=== PATIENT | male | born 1990 | race American Indian/Alaskan Native ===

== ENCOUNTER 2016-06-29 15:20 | Emergency (ER) | payer OTHER ==
[2016-06-29 15:56] VITALS: BP 119/75
--- NOTE | 2016-06-29 18:55 | Emergency Department Report ---
HPI - General Chief Complaint: Dental/Oral Time Seen by Provider: 06/29/16 18:08 - HPI HPI: 26-year-old male presents today with a cold sore to his right upper lip 2 days. Positive for history of cold sores. Describes his pain as 6 out of 10 intermittent aching pain. Tried hot water and ice without relief. Denies drainage or bleeding. Denies fever, chills, nausea, vomiting, chest pain, shortness of breath, abdominal pain. ED Past Medical Hx - Past Medical History Previous Medical History?: No Additional medical history: Tetanus status up to date - Surgical History Past Surgical History?: No - Social History Smoking Status: Never Smoker Substance Use Type: None - Medications Home Medications: Home Medications Medication Instructions Recorded Confirmed Last Taken Type Acetaminophen/Codeine [Tylenol #3] 1 tab PO Q6H PRN #20 tab 08/20/14 Unknown Rx Loratadine [Claritin] 10 mg PO DAILY #30 tablet 08/20/14 Unknown Rx predniSONE [Deltasone] 40 mg PO QDAY #10 tab 08/20/14 Unknown Rx Omeprazole [PriLOSEC] 20 mg PO BID #60 cap 08/23/14 Unknown Rx ALBUTEROL Inhaler [ProAir HFA 2 puff IH QID PRN #1 inhalation 06/13/15 Unknown Rx Inhaler] Prednisone [predniSONE 10 mg 10 mg PO .TAPER #1 tab.ds.pk 06/13/15 Unknown Rx (6-Day Pack, 21 Tabs)] Pseudoephed/Cod/Guaifen 5 ml PO Q6H #120 ml 06/13/15 Unknown Rx [Robitussin DAC 10-100-30Mg/5Ml] Acetaminophen/Codeine [Tylenol #3] 1 tab PO Q6H PRN #20 tab 09/02/15 Unknown Rx Clindamycin [Clindamycin CAP] 300 mg PO Q6H #30 capsule 09/02/15 Unknown Rx Ibuprofen [Motrin 600 MG tab] 600 mg PO Q8H PRN #40 tablet 09/02/15 Unknown Rx Acyclovir [Zovirax Cap] 200 mg PO 5XD #35 cap 06/29/16 Unknown Rx ED Review of Systems ROS: Stated complaint: COLD SORE/SWOLLEN LIP/ Other details as noted in HPI Constitutional: denies: chills, fever, malaise Eyes: denies: eye pain ENT: denies: ear pain, throat pain, congestion Respiratory: denies: cough, shortness of breath, wheezing Cardiovascular: denies: chest pain, palpitations Endocrine: no symptoms reported Gastrointestinal: denies: abdominal pain, nausea, vomiting Skin: lesions Neurological: denies: headache, weakness Physical Exam - Physical Exam Vital Signs: Vital Signs 06/29/16 15:53 Temperature 98.2 F Pulse Rate 83 Respiratory 18 Rate Blood Pressure 119/75 O2 Sat by Pulse 100 Oximetry Physical Exam: GENERAL: The patient is well-developed and well-nourished. Patient is in NAD. HEAD: Normocephalic. Atraumatic. EYES: PERRL. NOSE: Normal nasal mucosa with no nasal discharge. THROAT: No erythema, swelling or exudates. LIPS: Positive for cold sore to his right upper lip. No bleeding or drainage noted. NECK: Supple, nontender, without lymphadenopathy. CHEST/LUNGS: Clear to auscultation throughout. HEART/CARDIOVASCULAR: Regular rate and rhythm. No murmurs, rubs or gallops. ABDOMEN: Abdomen is soft, nontender. Bowel sounds normoactive. No guarding or rebound tenderness. EXTREMITIES: Peripheral pulses intact. Capillary refill less than 2 seconds. NEURO: Alert and oriented x 3. Normal gait. ED Course Vital Signs 06/29/16 15:53 Temperature 98.2 F Pulse Rate 83 Respiratory 18 Rate Blood Pressure 119/75 O2 Sat by Pulse 100 Oximetry ED Medical Decision Making - Lab Data Vital Signs 06/29/16 15:53 Temperature 98.2 F Pulse Rate 83 Respiratory 18 Rate Blood Pressure 119/75 O2 Sat by Pulse 100 Oximetry - Medical Decision Making 26-year-old male presents today with a cold sore. Patient is in no acute distress at this time. He will be discharged home and is encouraged to follow up with a primary care provider. He will be sent home on acyclovir and is encouraged to return to the emergency room for any worsening symptoms. Critical care attestation.: If time is entered above; I have spent that time in minutes in the direct care of this critically ill patient, excluding procedure time. ED Disposition Clinical Impression: Cold sore Disposition: DISCHARGED TO HOME OR SELFCARE Is pt being admited?: No Does the pt Need Aspirin: No Condition: Stable Instructions: Oral Herpes Simplex Virus Infections (ED) Additional Instructions: Follow with primary care provider. Return to the emergency department if symptoms worsen. Prescriptions: Acyclovir [Zovirax Cap] 200 mg PO 5XD #35 cap Referrals: PRIMARY CARE, [Primary Care Provider] - 3-5 Days [facility] [Outside] - 3-5 Days Forms: Work/School Release Form(ED) Time of Disposition: 18:52
== END 2016-06-29 19:01 | disposition home or self-care (01) ==
LOC: ED 15:20
DX: B00.1 Herpesviral vesicular dermatitis (principal)
CPT/HCPCS: 99282

== ENCOUNTER 2017-11-01 09:08 | Emergency (ER) | payer SELFPAY ==
[2017-11-01] MEDS ORDERED: TORADOL IM ONE (14:24)
[2017-11-01] MEDS ORDERED: TYLENOL PO ONE (14:24)
--- NOTE | 2017-11-01 14:25 | Emergency Department Report ---
ED General Adult HPI - General Chief complaint: Chest Pain Stated complaint: CHEST PAIN Time Seen by Provider: 11/01/17 14:18 Source: patient, RN notes reviewed, old records reviewed Mode of arrival: Ambulatory Limitations: No Limitations - History of Present Illness Initial comments: This is a 27-year-old male, right-hand dominant, unknown to this provider previously, who presents to the ER with a primary complaint of nontraumatic left -sided trapezius pain. The pain is achy, started at 7:00 AM, does not radiate anywhere, increases with palpation and decreases with rest. It has currently resolved. There is no trauma, there is no weakness, numbness, unsteady gait. Patient endorses nontraumatic right lateral chest wall pain as a secondary complaint, this also started at 7:00 in the morning, is now resolved, did not radiate anywhere, was unassociated with vomiting, diaphoresis or shortness of breath, denies cocaine use, aspirin use, and denies DVT, pulmonary embolus risk factors. -: Sudden Location: neck, chest Radiation: non-radiation Consistency: now resolved Improves with: none Worsens with: none Associated Symptoms: denies other symptoms. denies: confusion, chest pain, cough, diaphoresis, fever/chills, headaches, loss of appetite, malaise, nausea/ vomiting, rash, seizure, shortness of breath, syncope, weakness - Related Data Previous Rx's Medication Instructions Recorded Last Taken Type Acetaminophen/Codeine [Tylenol #3] 1 tab PO Q6H PRN #20 tab 08/20/14 Unknown Rx Loratadine [Claritin] 10 mg PO DAILY #30 tablet 08/20/14 Unknown Rx predniSONE [Deltasone] 40 mg PO QDAY #10 tab 08/20/14 Unknown Rx Omeprazole [PriLOSEC] 20 mg PO BID #60 cap 08/23/14 Unknown Rx ALBUTEROL Inhaler [ProAir HFA 2 puff IH QID PRN #1 inhalation 06/13/15 Unknown Rx Inhaler] Prednisone [predniSONE 10 mg 10 mg PO .TAPER #1 tab.ds.pk 06/13/15 Unknown Rx (6-Day Pack, 21 Tabs)] Pseudoephed/Cod/Guaifen 5 ml PO Q6H #120 ml 06/13/15 Unknown Rx [Robitussin DAC 10-100-30Mg/5Ml] Acetaminophen/Codeine [Tylenol #3] 1 tab PO Q6H PRN #20 tab 09/02/15 Unknown Rx Clindamycin [Clindamycin CAP] 300 mg PO Q6H #30 capsule 09/02/15 Unknown Rx Ibuprofen [Motrin 600 MG tab] 600 mg PO Q8H PRN #40 tablet 09/02/15 Unknown Rx Acyclovir [Zovirax Cap] 200 mg PO 5XD #35 cap 06/29/16 Unknown Rx Allergies Allergy/AdvReac Type Severity Reaction Status Date / Time No Known Allergies Allergy Verified 11/01/17 09:19 ED Review of Systems ROS: Stated complaint: CHEST PAIN Other details as noted in HPI Constitutional: denies: fever Eyes: denies: vision change ENT: denies: epistaxis Respiratory: denies: cough Cardiovascular: chest pain Gastrointestinal: denies: vomiting Genitourinary: denies: dysuria Musculoskeletal: arthralgia Neurological: denies: headache, weakness ED Past Medical Hx - Past Medical History Previous Medical History?: No Additional medical history: Tetanus status up to date - Surgical History Past Surgical History?: No - Social History Smoking Status: Never Smoker Substance Use Type: None - Medications Home Medications: Home Medications Medication Instructions Recorded Confirmed Last Taken Type Acetaminophen/Codeine [Tylenol #3] 1 tab PO Q6H PRN #20 tab 08/20/14 Unknown Rx Loratadine [Claritin] 10 mg PO DAILY #30 tablet 08/20/14 Unknown Rx predniSONE [Deltasone] 40 mg PO QDAY #10 tab 08/20/14 Unknown Rx Omeprazole [PriLOSEC] 20 mg PO BID #60 cap 08/23/14 Unknown Rx ALBUTEROL Inhaler [ProAir HFA 2 puff IH QID PRN #1 inhalation 06/13/15 Unknown Rx Inhaler] Prednisone [predniSONE 10 mg 10 mg PO .TAPER #1 tab.ds.pk 06/13/15 Unknown Rx (6-Day Pack, 21 Tabs)] Pseudoephed/Cod/Guaifen 5 ml PO Q6H #120 ml 06/13/15 Unknown Rx [Robitussin DAC 10-100-30Mg/5Ml] Acetaminophen/Codeine [Tylenol #3] 1 tab PO Q6H PRN #20 tab 09/02/15 Unknown Rx Clindamycin [Clindamycin CAP] 300 mg PO Q6H #30 capsule 09/02/15 Unknown Rx Ibuprofen [Motrin 600 MG tab] 600 mg PO Q8H PRN #40 tablet 09/02/15 Unknown Rx Acyclovir [Zovirax Cap] 200 mg PO 5XD #35 cap 06/29/16 Unknown Rx ED Physical Exam - General Limitations: No Limitations General appearance: alert, in no apparent distress - Head Head exam: Present: atraumatic, normocephalic - Eye Eye exam: Present: normal appearance, EOMI. Absent: nystagmus - ENT ENT exam: Present: normal exam, normal orophraynx, mucous membranes moist, normal external ear exam - Neck Neck exam: Present: normal inspection, full ROM. Absent: tenderness, meningismus - Respiratory Respiratory exam: Present: normal lung sounds bilaterally. Absent: respiratory distress - Cardiovascular Cardiovascular Exam: Present: regular rate, normal rhythm, normal heart sounds. Absent: bradycardia, tachycardia, irregular rhythm, systolic murmur, diastolic murmur, rubs, gallop - GI/Abdominal GI/Abdominal exam: Present: soft, normal bowel sounds. Absent: distended, tenderness, guarding, rebound, rigid, pulsatile mass - Rectal Rectal exam: Present: deferred - Extremities Exam Extremities exam: Present: normal inspection (is no palpable cord. There is negative Homans sign.), full ROM, normal capillary refill, other (2+ pulses noted in the bilateral upper, lower extremities. Compartments soft. No long bony tenderness. The pelvis is stable.). Absent: pedal edema, joint swelling, calf tenderness - Back Exam Back exam: Present: normal inspection, full ROM. Absent: tenderness, CVA tenderness (R), paraspinal tenderness, vertebral tenderness - Neurological Exam Neurological exam: Present: alert, oriented X3, CN II-XII intact, normal gait, other (Extraocular movements intact. Tongue midline. No facial droop. Facial sensation intact to light touch in the V1, V2, V3 distribution bilaterally. 5 and 5 strength in 4 extremities.. Sensation is intact to light touch in 4 extremities.). Absent: motor sensory deficit - Psychiatric Psychiatric exam: Present: normal affect, normal mood - Skin Skin exam: Present: warm, dry, intact, normal color. Absent: rash ED Course Vital Signs 11/01/17 11/01/17 09:19 14:38 Temperature 97.4 F L Pulse Rate 79 Respiratory 16 16 Rate Blood Pressure 115/76 O2 Sat by Pulse 98 100 Oximetry - Reevaluation(s) Reevaluation #1: 11/01/17 14:43 Differential diagnosis, including but not limited to: Costochondritis, pneumonia , myositis, acute coronary syndrome, muscular neck pain, muscular chest wall pain Assessment and plan: 27-year-old male, no pulmonary embolus or DVT risk factors , low risk by well's criteria, low risk by MICKEY score, low risk by heart score, perc negative, EKG unchanged from prior, with resolved left nontraumatic neck pain and resolved right-sided chest wall pain. He is afebrile with reassuring vital signs, his physical exam is unremarkable, indicates no evidence of epidural compression syndrome or obvious infectious etiology at this time. He is suitable to be managed expectantly and supportively as an outpatient. ED Medical Decision Making - Lab Data Vital Signs 11/01/17 11/01/17 09:19 14:38 Temperature 97.4 F L Pulse Rate 79 Respiratory 16 16 Rate Blood Pressure 115/76 O2 Sat by Pulse 98 100 Oximetry - EKG Data -: EKG Interpreted by Me EKG shows normal: sinus rhythm, intervals, QRS complexes - EKG Data When compared to previous EKG there are: no significant change Interpretation: unchanged when compared t 11/01/17 14:46 Normal sinus, 74 bpm, normal axis, normal intervals, high left ventricular voltage, benign early repolarization, unchanged from prior EKG from 2016. Not a stemi - Radiology Data Radiology results: image reviewed interpreted by me: X-ray of the chest, interpreted by me, no acute disease Critical care attestation.: If time is entered above; I have spent that time in minutes in the direct care of this critically ill patient, excluding procedure time. ED Disposition Clinical Impression: Neck pain, Right-sided chest pain Disposition: - TO HOME OR SELFCARE Is pt being admited?: No Does the pt Need Aspirin: No Condition: Stable Instructions: Chest Pain (ED) Additional Instructions: Rest, and avoid heavy lifting. Avoid strenuous and arduous physical activities. EKG demonstrated findings that are most likely related to young age. 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 Follow up with any of the listed cardiology groups within the next week. Take acetaminophen alternating with ibuprofen with food [id number] every 6 hours as needed for pain. Return to the ER right away with new pain, worsening pain, migration of pain, extremity weakness , projectile vomiting, change in mental status, inability to tolerate liquid feeds. Referrals: PRIMARY CARE, [Primary Care Provider] - 3-5 Days [facility] [Provider Group] - 3-5 Days [facility] [Provider Group] - 3-5 Days
--- NOTE | 2017-11-01 14:59 | XRay Report ---
ROUTINE CHEST, TWO VIEWS: HISTORY: chest pain. The trachea, heart, mediastinal contour, lung casarez and bony thorax are unremarkable. IMPRESSION: Unremarkable chest x-ray. No change since 06/13/15.
[2017-11-01 15:39] VITALS: BP 115/68
== END 2017-11-01 16:16 | disposition home or self-care (01) ==
LOC: ED 09:08
DX: R07.89 Other chest pain (principal); M54.2 Cervicalgia
CPT/HCPCS: 36415; 71046; 82550; 84484; 93005; 93010; 96372; 99284; J1885

== ENCOUNTER 2018-08-16 13:28 | Emergency (ER) | payer OTHER ==
--- NOTE | 2018-08-16 13:42 | Emergency Department Report ---
ED ENT HPI - General Chief complaint: Sore Throat Stated complaint: SORE THROAT Time Seen by Provider: 08/16/18 13:37 Source: patient Mode of arrival: Ambulatory Limitations: No Limitations - History of Present Illness Initial comments: This is a 28-year-old male nontoxic well in appearance with no signs of distress presents to the ED with complaint of sore throat. Patient denies any drooling or hoariness. Denies any fever, chills, headache, nausea, vomiting, chest pain or SOB. Denies any other complaints. Denies any allergies. MD complaint: sore throat -: days(s) Location: throat Severity: mild Severity scale (0 -10): 8 Quality: aching Consistency: constant Improves with: none Worsens with: none Associated Symptoms: pain with swallowing, sore throat. denies: fever, cough, gum swelling, toothache, tinnitus, hearing loss, discharge from ear, rhinorrhea - Related Data Previous Rx's Medication Instructions Recorded Last Taken Type Acetaminophen/Codeine [Tylenol #3] 1 tab PO Q6H PRN #20 tab 08/20/14 Unknown Rx Loratadine [Claritin] 10 mg PO DAILY #30 tablet 08/20/14 Unknown Rx predniSONE [Deltasone] 40 mg PO QDAY #10 tab 08/20/14 Unknown Rx Omeprazole [PriLOSEC] 20 mg PO BID #60 cap 08/23/14 Unknown Rx ALBUTEROL Inhaler (OR & NICU) 2 puff IH QID PRN #1 inhalation 06/13/15 Unknown Rx [ProAir HFA Inhaler] Prednisone [predniSONE 10 mg 10 mg PO .TAPER #1 tab.ds.pk 06/13/15 Unknown Rx (6-Day Pack, 21 Tabs)] Pseudoephed/Cod/Guaifen 5 ml PO Q6H #120 ml 06/13/15 Unknown Rx [Robitussin DAC 10-100-30Mg/5Ml] Acetaminophen/Codeine [Tylenol #3] 1 tab PO Q6H PRN #20 tab 09/02/15 Unknown Rx Clindamycin [Clindamycin CAP] 300 mg PO Q6H #30 capsule 09/02/15 Unknown Rx Ibuprofen [Motrin 600 MG tab] 600 mg PO Q8H PRN #40 tablet 09/02/15 Unknown Rx Acyclovir [Zovirax Cap] 200 mg PO 5XD #35 cap 06/29/16 Unknown Rx Amoxicillin [Amoxicillin TAB] 875 mg PO BID #20 tablet 08/16/18 Unknown Rx Ibuprofen [Motrin] 600 mg PO Q8H PRN #20 tablet 08/16/18 Unknown Rx Nystas/Diphen/Xyl Visc/Mylanta 15 ml MM Q4H PRN 5 Days ml 08/16/18 Unknown Rx [Magic Mouthwash] Allergies Allergy/AdvReac Type Severity Reaction Status Date / Time No Known Allergies Allergy Verified 11/01/17 09:19 ED Dental HPI - General Chief complaint: Sore Throat Stated complaint: SORE THROAT Time Seen by Provider: 08/16/18 13:37 Source: patient Mode of arrival: Ambulatory Limitations: No Limitations - Related Data Previous Rx's Medication Instructions Recorded Last Taken Type Acetaminophen/Codeine [Tylenol #3] 1 tab PO Q6H PRN #20 tab 08/20/14 Unknown Rx Loratadine [Claritin] 10 mg PO DAILY #30 tablet 08/20/14 Unknown Rx predniSONE [Deltasone] 40 mg PO QDAY #10 tab 08/20/14 Unknown Rx Omeprazole [PriLOSEC] 20 mg PO BID #60 cap 08/23/14 Unknown Rx ALBUTEROL Inhaler (OR & NICU) 2 puff IH QID PRN #1 inhalation 06/13/15 Unknown Rx [ProAir HFA Inhaler] Prednisone [predniSONE 10 mg 10 mg PO .TAPER #1 tab.ds.pk 06/13/15 Unknown Rx (6-Day Pack, 21 Tabs)] Pseudoephed/Cod/Guaifen 5 ml PO Q6H #120 ml 06/13/15 Unknown Rx [Robitussin DAC 10-100-30Mg/5Ml] Acetaminophen/Codeine [Tylenol #3] 1 tab PO Q6H PRN #20 tab 09/02/15 Unknown Rx Clindamycin [Clindamycin CAP] 300 mg PO Q6H #30 capsule 09/02/15 Unknown Rx Ibuprofen [Motrin 600 MG tab] 600 mg PO Q8H PRN #40 tablet 09/02/15 Unknown Rx Acyclovir [Zovirax Cap] 200 mg PO 5XD #35 cap 06/29/16 Unknown Rx Amoxicillin [Amoxicillin TAB] 875 mg PO BID #20 tablet 08/16/18 Unknown Rx Ibuprofen [Motrin] 600 mg PO Q8H PRN #20 tablet 08/16/18 Unknown Rx Nystas/Diphen/Xyl Visc/Mylanta 15 ml MM Q4H PRN 5 Days ml 08/16/18 Unknown Rx [Magic Mouthwash] Allergies Allergy/AdvReac Type Severity Reaction Status Date / Time No Known Allergies Allergy Verified 11/01/17 09:19 ED Review of Systems ROS: Stated complaint: SORE THROAT Other details as noted in HPI Constitutional: denies: chills, fever Eyes: denies: eye pain, eye discharge, vision change ENT: throat pain. denies: ear pain Respiratory: denies: cough, shortness of breath, wheezing Cardiovascular: denies: chest pain, palpitations Endocrine: no symptoms reported Gastrointestinal: denies: abdominal pain, nausea, diarrhea Genitourinary: denies: urgency, dysuria Musculoskeletal: denies: back pain, joint swelling, arthralgia Skin: denies: rash, lesions Neurological: denies: headache, weakness, paresthesias Psychiatric: denies: anxiety, depression Hematological/Lymphatic: denies: easy bleeding, easy bruising ED Past Medical Hx - Past Medical History Previous Medical History?: No Additional medical history: Tetanus status up to date - Surgical History Past Surgical History?: No - Social History Smoking Status: Never Smoker Substance Use Type: None - Medications Home Medications: Home Medications Medication Instructions Recorded Confirmed Last Taken Type Acetaminophen/Codeine [Tylenol #3] 1 tab PO Q6H PRN #20 tab 08/20/14 Unknown Rx Loratadine [Claritin] 10 mg PO DAILY #30 tablet 08/20/14 Unknown Rx predniSONE [Deltasone] 40 mg PO QDAY #10 tab 08/20/14 Unknown Rx Omeprazole [PriLOSEC] 20 mg PO BID #60 cap 08/23/14 Unknown Rx ALBUTEROL Inhaler (OR & NICU) 2 puff IH QID PRN #1 inhalation 06/13/15 Unknown Rx [ProAir HFA Inhaler] Prednisone [predniSONE 10 mg 10 mg PO .TAPER #1 tab.ds.pk 06/13/15 Unknown Rx (6-Day Pack, 21 Tabs)] Pseudoephed/Cod/Guaifen 5 ml PO Q6H #120 ml 06/13/15 Unknown Rx [Robitussin DAC 10-100-30Mg/5Ml] Acetaminophen/Codeine [Tylenol #3] 1 tab PO Q6H PRN #20 tab 09/02/15 Unknown Rx Clindamycin [Clindamycin CAP] 300 mg PO Q6H #30 capsule 09/02/15 Unknown Rx Ibuprofen [Motrin 600 MG tab] 600 mg PO Q8H PRN #40 tablet 09/02/15 Unknown Rx Acyclovir [Zovirax Cap] 200 mg PO 5XD #35 cap 06/29/16 Unknown Rx Amoxicillin [Amoxicillin TAB] 875 mg PO BID #20 tablet 08/16/18 Unknown Rx Ibuprofen [Motrin] 600 mg PO Q8H PRN #20 tablet 08/16/18 Unknown Rx Nystas/Diphen/Xyl Visc/Mylanta 15 ml MM Q4H PRN 5 Days ml 08/16/18 Unknown Rx [Magic Mouthwash] ED Physical Exam - General Limitations: No Limitations General appearance: alert, in no apparent distress - Head Head exam: Present: atraumatic, normocephalic - Expanded ENT Exam Expanded Ear exam: Present: normal external inspection Mouth exam: Present: normal external inspection, tongue normal. Absent: drooling, trismus, muffled voice Teeth exam: Present: normal inspection Throat exam: Positive: tonsillar erythema, other (uvula midline.). Negative: tonsillomegaly, tonsillar exudate, R peritonsillar mass, L peritonsillar mass - Neck Neck exam: Present: normal inspection, full ROM. Absent: tenderness, meningismus, lymphadenopathy - Extremities Exam Extremities exam: Present: normal inspection, full ROM - Back Exam Back exam: Present: normal inspection, full ROM - Neurological Exam Neurological exam: Present: alert, oriented X3 - Psychiatric Psychiatric exam: Present: normal affect, normal mood - Skin Skin exam: Present: warm, dry, intact, normal color. Absent: rash ED Course - Reevaluation(s) Reevaluation #1: 08/16/18 13:39 Patient is speaking in full sentences with no signs of distress noted. ED Medical Decision Making - Medical Decision Making Patient was instructed to Follow-up with a primary care doctor in 3-5 days or if symptoms worsen and continue return to emergency room as soon as possible. At time of discharge, the patient does not seem toxic or ill in appearance. No acute signs of distress noted. Patient agrees to discharge treatment plan of care. No further questions noted by the patient. Critical care attestation.: If time is entered above; I have spent that time in minutes in the direct care of this critically ill patient, excluding procedure time. ED Disposition Clinical Impression: Pharyngitis Disposition: [id number] TO HOME OR SELFCARE Is pt being admited?: No Does the pt Need Aspirin: No Condition: Stable Instructions: Pharyngitis (ED) Additional Instructions: Follow-up with a primary care doctor in 3-5 days or if symptoms worsen and continue return to emergency room as soon as possible. Prescriptions: Amoxicillin [Amoxicillin TAB] 875 mg PO BID #20 tablet Nystas/Diphen/Xyl Visc/Mylanta [Magic Mouthwash] 15 ml MM Q4H PRN 5 Days ml PRN Reason: Sore Throat Ibuprofen [Motrin] 600 mg PO Q8H PRN #20 tablet PRN Reason: Pain Referrals: PRIMARY CAREMD [Referring] - 3-5 Days BUTCH ASH MD [Staff Physician] - 3-5 Days [facility] [Outside] - 3-5 Days [facility] [Outside] - 3-5 Days Forms: Work/School Release Form(ED)
[2018-08-16 13:43] VITALS: BP 120/72
== END 2018-08-16 14:10 | disposition home or self-care (01) ==
LOC: ED 13:28
DX: J02.9 Acute pharyngitis, unspecified (principal)
CPT/HCPCS: 99282

== ENCOUNTER 2021-01-03 20:58 | Emergency (ER) | payer OTHER ==
[2021-01-03 22:15] VITALS: BP 113/76
[2021-01-03] MEDS ORDERED: IBUPROFEN 800 MG TAB PO ONE (22:20)
--- NOTE | 2021-01-03 22:21 | Emergency Department Report ---
HPI - General Chief Complaint: Extremity Injury, Lower Time Seen by Provider: 01/03/21 22:19 - HPI HPI: 30-year-old -[place] male presents to the emergency department with complaint of left foot pain has been going on for the past 2 to 3 weeks. P atient denies any known trauma, injury, or inciting event. The pain is mostly to the top of his foot. He denies any obvious swelling, rash, lesions, skin color change. He has not taken anything for symptoms prior to presentation. He denies any past medical history. ED Past Medical Hx - Past Medical History Previous Medical History?: No Additional medical history: Tetanus status up to date - Surgical History Past Surgical History?: No - Social History Smoking Status: Never Smoker Substance Use Type: None - Medications Home Medications: Home Medications Medication Instructions Recorded Confirmed Last Taken Type Acetaminophen/Codeine [Tylenol #3] 1 tab PO Q6H PRN #20 tab 08/20/14 Unknown Rx Loratadine (Nf) [Claritin] 10 mg PO DAILY #30 tablet 08/20/14 Unknown Rx predniSONE [Deltasone] 40 mg PO QDAY #10 tab 08/20/14 Unknown Rx Omeprazole [PriLOSEC] 20 mg PO BID #60 cap 08/23/14 Unknown Rx Albuterol Mdi (or & Nicu Only) 2 puff IH QID PRN #1 inhalation 06/13/15 Unknown Rx [ProAir HFA Inhaler] Prednisone [predniSONE 10 mg 10 mg PO .TAPER #1 tab.ds.pk 06/13/15 Unknown Rx (6-Day Pack, 21 Tabs)] Pseudoephed/Cod/Guaifen 5 ml PO Q6H #120 ml 06/13/15 Unknown Rx [Robitussin DAC 10-100-30Mg/5Ml] Acetaminophen/Codeine [Tylenol #3] 1 tab PO Q6H PRN #20 tab 09/02/15 Unknown Rx Clindamycin [Clindamycin CAP] 300 mg PO Q6H #30 capsule 09/02/15 Unknown Rx Ibuprofen [Motrin 600 MG tab] 600 mg PO Q8H PRN #40 tablet 09/02/15 Unknown Rx Acyclovir [Zovirax Cap] 200 mg PO 5XD #35 cap 06/29/16 Unknown Rx Amoxicillin [Amoxicillin TAB] 875 mg PO BID #20 tablet 08/16/18 Unknown Rx Ibuprofen [Motrin] 600 mg PO Q8H PRN #20 tablet 08/16/18 Unknown Rx Nystas/Diphen/Xyl Visc/Mylanta 15 ml MM Q4H PRN 5 Days ml 08/16/18 Unknown Rx [Magic Mouthwash] Ibuprofen [Motrin 800 MG tab] 800 mg PO Q8HR PRN #20 tablet 01/03/21 Unknown Rx ED Review of Systems ROS: Stated complaint: L FOOT PAIN Other details as noted in HPI Comment: All other systems reviewed and negative Constitutional: denies: chills, fever Eyes: denies: eye pain, vision change ENT: denies: ear pain, throat pain Respiratory: denies: cough, shortness of breath Cardiovascular: denies: chest pain, palpitations Gastrointestinal: denies: abdominal pain, vomiting Genitourinary: denies: dysuria, discharge Musculoskeletal: arthralgia. denies: back pain Skin: denies: rash, lesions, change in color Neurological: denies: numbness, paresthesias Physical Exam - Physical Exam Vital Signs: Vital Signs 01/03/21 22:10 Temperature 98.4 F Pulse Rate 74 Respiratory 18 Rate Blood Pressure 113/76 O2 Sat by Pulse 100 Oximetry Physical Exam: GENERAL: The patient is well-developed well-nourished. HENT: Normocephalic. Atraumatic. Patient has moist mucous membranes. EYES: Extraocular motions are intact. Pupils equal reactive to light bilaterally. NECK: Supple. Trachea is midline. SKIN: Skin is warm and dry. NEURO: The patient is awake, alert, and oriented. The patient is cooperative. The patient has no focal neurologic deficits. Normal speech. MUSCULOSKELETAL: There is tenderness to palpation along the left dorsal foot, but no obvious deformity. +2/4 dorsalis pedis pulse and capillary refill less than 2 seconds to the affected left foot. ED Course Vital Signs 01/03/21 22:10 Temperature 98.4 F Pulse Rate 74 Respiratory 18 Rate Blood Pressure 113/76 O2 Sat by Pulse 100 Oximetry ED Medical Decision Making - Radiology Data Radiology results: image reviewed interpreted by me: X-ray of the left foot does not show any fracture, dislocation, subcutaneous gas, or any other acute process. - Medical Decision Making This patient presents with a 2 to 3-week history of atraumatic left foot pain. He appears neurovascularly intact. X-ray does not show any fracture, dislocation, or any acute process. The patient has been placed on anti- inflammatories and given outpatient referral for a tire classifier and orthopedist. Critical Care Time: No Critical care attestation.: If time is entered above; I have spent that time in minutes in the direct care of this critically ill patient, excluding procedure time. ED Disposition Clinical Impression: Left foot pain Disposition: HOME / SELF CARE / HOMELESS Is pt being admited?: No Condition: Stable Instructions: Foot Pain Additional Instructions: Please follow-up with a primary care physician in the next few days. I have given you a referral for a local tire classifier, Dr. Dooley, and a local orthopedist, Dr. Ruiz, to follow-up regarding your left foot pain. Return to the emergency department with any worsening of your symptoms, new or concerning symptoms not addressed during this current emergency department visit, or with any acute distress. Prescriptions: Ibuprofen [Motrin 800 MG tab] 800 mg PO Q8HR PRN #20 tablet PRN Reason: Pain , Severe (7-10) Referrals: WILLIE DOOLEY DPM [Staff Physician] - 3-5 Days NESSA RUIZ MD [Staff Physician] - 3-5 Days Time of Disposition: 23:05
--- NOTE | 2021-01-03 22:51 | XRay Report ---
Left foot radiograph, 3 views HISTORY: Left foot pain COMPARISON: None FINDINGS: No acute fracture or malalignment. Lisfranc interval is preserved. No focal soft tissue abn ormality. IMPRESSION: No acute process Signer Name: Hernandez Roy MD Signed: 01/03/2021 10:47 PM Workstation Name: [id number]
== END 2021-01-03 23:20 | disposition home or self-care (01) ==
LOC: ED 20:58
DX: M79.672 Pain in left foot (principal)
CPT/HCPCS: 99283